=== PATIENT | female | born 1995 | race African-American/Black ===

== ENCOUNTER 2018-04-09 15:08 | Emergency (ER) | payer BC, MEDICAID ==
[~2018-04-09] VITALS: Ht 167.6 cm; Wt 110.2 kg
[~2018-04-09 15:08] MED LIST: FERR-43 PO; GLYB2.5T4 PO; PREN-88 PO
[2018-04-09 17:10] LABS: BASOPHILS % 0.6 % (0.0-2.0); EOSINOPHILS % 0.5 % (0.0-5.0); HEMATOCRIT. 32.2 % (36.0-48.0); HEMOGLOBIN. 10.1 g/dL (12.0-16.0); LYMPHOCYTES % 14.3 % (20.0-50.0); MEAN CORPUSCULAR HEMOGLOBIN 22.2 pg (28.0-32.0); MEAN CORPUSCULAR VOLUME 70.9 fL (81.0-99.0); MEAN PLATELET VOLUME 8.9 fl (7.4-10.4); MONOCYTES % 3.1 % (2.0-8.0); NEUTROPHILS % 81.5 % (40.0-76.0); PLATELET 238 x1000/uL (130-400); RED BLOOD CELL COUNT 4.54 mill/uL (4.2-5.4)
[2018-04-09 17:13] LABS: CHLORIDE 103 mEq/L (98-107)
[2018-04-09 17:14] LABS: PROTHROMBIN TIME 10.1 sec (9.1-11.1)
[2018-04-09 17:39] LABS: B-HCG QUANTITATIVE 111901 mIU/mL (<3)
[2018-04-09] MEDS ORDERED: ACETAMINOPHEN 325MG TABLET PO ONE (18:00)
[2018-04-09] MEDS ORDERED: ACETAMINOPHEN 325MG TABLET ONE (18:13)
[2018-04-09 19:41] LABS: CLARITY URINE CLOUDY (CLEAR); COLOR URINE YELLOW (YELLOW); KETONES URINE TRACE (NEGATIVE); LEUKOCYTE ESTERASE URINE 1+ (NEGATIVE); NITRITE URINE NEGATIVE (NEGATIVE); OCCULT BLOOD URINE NEGATIVE (NEGATIVE); PH URINE 5.5 (4.5-8.0); PROTEIN URINE NEGATIVE (NEGATIVE); SPECIFIC GRAVITY URINE 1.032 (1.005-1.030); UROBILINOGEN URINE 0.2 E.U./dL (0.2-1.0)
[2018-04-09 20:32] VITALS: BP 115/84
== END 2018-04-09 20:33 | disposition home or self-care (01) ==
LOC: ER 15:08
DX: O20.0 Threatened abortion (principal); O23.11 Infections of bladder in pregnancy, first trimester; O24.419 Gestational diabetes mellitus in pregnancy, unspecified control; O26.891 Other specified pregnancy related conditions, first trimester; D72.829 Elevated white blood cell count, unspecified; Z3A.13 13 weeks gestation of pregnancy; Z88.8 Allergy status to other drugs, medicaments and biological substances
CPT/HCPCS: 36415; 76801; 76802; 80053; 81003; 81025; 84702; 85025; 85610; 86850; 86900; 99285

== ENCOUNTER 2020-10-15 00:38 | Emergency (ER) | payer MEDICAID ==
[~2020-10-15] VITALS: Ht 170.2 cm; Wt 118.1 kg
[2020-10-15 01:44] LABS: CLARITY URINE CLEAR (CLEAR); COLOR URINE YELLOW (YELLOW); KETONES URINE NEGATIVE (NEGATIVE); LEUKOCYTE ESTERASE URINE NEGATIVE (NEGATIVE); NITRITE URINE NEGATIVE (NEGATIVE); OCCULT BLOOD URINE 3+ (NEGATIVE); PH URINE 6.5 (4.5-8.0); PROTEIN URINE NEGATIVE (NEGATIVE); SPECIFIC GRAVITY URINE 1.027 (1.005-1.030)
[2020-10-15] MEDS ORDERED: SODIUM CHLORIDE 0.9% 1,000 ML IV ONE (01:45)
[2020-10-15 02:15] LABS: BASOPHILS % 0.5 % (0.0-2.0); EOSINOPHILS % 1.3 % (0.0-5.0); HEMATOCRIT. 31.3 % (36.0-48.0); HEMOGLOBIN. 9.3 g/dL (12.0-16.0); LYMPHOCYTES % 14.2 % (20.0-50.0); MEAN CORPUSCULAR HEMOGLOBIN 19.4 pg (28.0-32.0); MEAN CORPUSCULAR VOLUME 65.2 fL (81.0-99.0); MEAN PLATELET VOLUME 9.1 fl (7.4-10.4); MONOCYTES % 5.1 % (2.0-8.0); NEUTROPHILS % 78.9 % (40.0-76.0); PLATELET 318 x1000/uL (130-400); RED CELL DISTRIBUTION WIDTH 19.5 % (11.6-14.6)
[2020-10-15 02:29] LABS: PLATELET ESTIMATE NORMAL
[2020-10-15 02:33] LABS: CHLORIDE 104 mEq/L (98-107)
[2020-10-15 02:45] LABS: B-HCG QUANTITATIVE < 1 mIU/mL (<3)
[2020-10-15] MEDS ORDERED: IBUP-2028 MT (03:32)
[2020-10-15 03:55] VITALS: BP 131/82
== END 2020-10-15 04:00 | disposition home or self-care (01) ==
LOC: ER 00:38
DX: O03.9 Complete or unspecified spontaneous abortion without complication (principal); D50.9 Iron deficiency anemia, unspecified; E11.9 Type 2 diabetes mellitus without complications
CPT/HCPCS: 36415; 76830; 76856; 80053; 81003; 81025; 84702; 85025; 86850; 86900; 86901; 96360; 96361; 99284; J7030; Z7610

== ENCOUNTER 2021-08-12 10:25 | Emergency (ER) | payer MEDICAID, OTHER ==
[~2021-08-12] VITALS: Ht 170.2 cm; Wt 109.0 kg
[~2021-08-12 10:25] MED LIST changes: +IBUP-2028 MT
[2021-08-12 10:30] VITALS: BP 170/80
[2021-08-12] MEDS ORDERED: ACETAMINOPHEN 325MG TABLET PO ONE (10:30)
== END 2021-08-12 12:15 | disposition home or self-care (01) ==
LOC: ER 10:25
DX: S93.492A Sprain of other ligament of left ankle, initial encounter (principal); M25.571 Pain in right ankle and joints of right foot; W01.0XXA Fall on same level from slipping, tripping and stumbling without subsequent striking against object, initial encounter; Y93.89 Activity, other specified; Y92.89 Other specified places as the place of occurrence of the external cause; Y99.8 Other external cause status; Z98.890 Other specified postprocedural states
CPT/HCPCS: 73610; 99283

== ENCOUNTER 2021-10-09 08:03 | Emergency (ER) | payer MEDICAID, OTHER ==
[~2021-10-09] VITALS: Ht 170.2 cm; Wt 126.0 kg
[2021-10-09] MEDS ORDERED: IBUPROFEN 600MG TABLET PO STA (10:18)
[2021-10-09 11:07] LABS: BASOPHILS % 0.4 % (0.0-2.0); EOSINOPHILS % 0.8 % (0.0-5.0); HEMATOCRIT. 33.5 % (36.0-48.0); HEMOGLOBIN. 10.3 g/dL (12.0-16.0); LYMPHOCYTES % 16.3 % (20.0-50.0); MEAN CORPUSCULAR VOLUME 65.2 fL (81.0-99.0); MEAN PLATELET VOLUME 9.4 fl (7.4-10.4); MONOCYTES % 3.1 % (2.0-8.0); NEUTROPHILS % 79.4 % (40.0-76.0); PLATELET 254 x1000/uL (130-400); RED BLOOD CELL COUNT 5.14 mill/uL (4.2-5.4); RED CELL DISTRIBUTION WIDTH 19.1 % (11.6-14.6)
[2021-10-09 11:19] LABS: CLARITY URINE CLEAR (CLEAR); COLOR URINE YELLOW (YELLOW); KETONES URINE NEGATIVE (NEGATIVE); LEUKOCYTE ESTERASE URINE NEGATIVE (NEGATIVE); NITRITE URINE NEGATIVE (NEGATIVE); OCCULT BLOOD URINE 3+ (NEGATIVE); PROTEIN URINE NEGATIVE (NEGATIVE); SPECIFIC GRAVITY URINE 1.042 (1.005-1.030); UROBILINOGEN URINE 0.2 E.U./dL (0.2-1.0)
[2021-10-09 11:21] LABS: CHLORIDE 101 mEq/L (98-107)
[2021-10-09 11:27] LABS: HCG SCREEN NEGATIVE
[2021-10-09 12:15] VITALS: BP 114/71
[2021-10-09 15:17] LABS: PLATELET ESTIMATE NORMAL
== END 2021-10-09 12:44 | disposition home or self-care (01) ==
LOC: ER 08:05
DX: N93.8 Other specified abnormal uterine and vaginal bleeding (principal); E11.65 Type 2 diabetes mellitus with hyperglycemia; Z88.8 Allergy status to other drugs, medicaments and biological substances; Z98.890 Other specified postprocedural states
CPT/HCPCS: 36415; 80053; 81003; 84703; 85025; 99283

== ENCOUNTER 2021-10-09 21:37 | Emergency (ER) | payer MEDICAID, OTHER ==
[~2021-10-09] VITALS: Ht 170.2 cm; Wt 122.0 kg
[2021-10-09 22:33] LABS: BASOPHILS % 0.9 % (0.0-2.0); EOSINOPHILS % 1.3 % (0.0-5.0); HEMATOCRIT. 33.4 % (36.0-48.0); HEMOGLOBIN. 10.1 g/dL (12.0-16.0); LYMPHOCYTES % 20.2 % (20.0-50.0); MEAN CORPUSCULAR HEMOGLOBIN 19.6 pg (28.0-32.0); MEAN CORPUSCULAR VOLUME 64.8 fL (81.0-99.0); MEAN PLATELET VOLUME 9.1 fl (7.4-10.4); MONOCYTES % 4.6 % (2.0-8.0); PLATELET 263 x1000/uL (130-400); RED BLOOD CELL COUNT 5.15 mill/uL (4.2-5.4); RED CELL DISTRIBUTION WIDTH 18.7 % (11.6-14.6)
[2021-10-09 22:40] LABS: CHLORIDE 102 mEq/L (98-107)
[2021-10-09 22:51] LABS: B-HCG QUANTITATIVE < 1 mIU/mL (<3)
[2021-10-10] MEDS ORDERED: IBUPROFEN 600MG TABLET PO ONE (00:30)
[2021-10-10 00:39] LABS: CLARITY URINE CLOUDY (CLEAR); COLOR URINE RED (YELLOW); KETONES URINE TRACE (NEGATIVE); LEUKOCYTE ESTERASE URINE 1+ (NEGATIVE); NITRITE URINE NEGATIVE (NEGATIVE); OCCULT BLOOD URINE 3+ (NEGATIVE); PH URINE 5.5 (4.5-8.0); PROTEIN URINE 1+ (NEGATIVE); SPECIFIC GRAVITY URINE 1.049 (1.005-1.030); UROBILINOGEN URINE 0.2 E.U./dL (0.2-1.0)
[2021-10-10 02:10] VITALS: BP 128/78
== END 2021-10-10 02:11 | disposition home or self-care (01) ==
LOC: ER 21:37
DX: N93.8 Other specified abnormal uterine and vaginal bleeding (principal); D25.9 Leiomyoma of uterus, unspecified; Z88.8 Allergy status to other drugs, medicaments and biological substances; Z98.890 Other specified postprocedural states
CPT/HCPCS: 36415; 76830; 76856; 80053; 81003; 81025; 84702; 85025; 86850; 86900; 93005; 99285

== ENCOUNTER 2021-10-22 06:54 | Emergency (ER) | payer MEDICAID ==
[~2021-10-22] VITALS: Ht 170.2 cm; Wt 122.0 kg
[2021-10-22] MEDS ORDERED: IBUPROFEN 600MG TABLET PO STA (07:39)
[2021-10-22 08:02] LABS: CLARITY URINE CLEAR (CLEAR); COLOR URINE YELLOW (YELLOW); KETONES URINE 1+ (NEGATIVE); LEUKOCYTE ESTERASE URINE NEGATIVE (NEGATIVE); NITRITE URINE NEGATIVE (NEGATIVE); OCCULT BLOOD URINE NEGATIVE (NEGATIVE); PH URINE 5.5 (4.5-8.0); PROTEIN URINE NEGATIVE (NEGATIVE); SPECIFIC GRAVITY URINE 1.043 (1.005-1.030); UROBILINOGEN URINE 0.2 E.U./dL (0.2-1.0)
[2021-10-22] MEDS ORDERED: SODIUM CHLORIDE 0.9% IV ONE (08:30)
[2021-10-22] MEDS ORDERED: SODIUM CHLORIDE 0.9% 1,000 ML IV ONE (08:30)
[2021-10-22] MEDS ORDERED: ONDANSETRON HCL 4MG/2ML INJ IV ONE (08:45)
[2021-10-22 08:56] LABS: BASOPHILS % 0.3 % (0.0-2.0); EOSINOPHILS % 0.6 % (0.0-5.0); HEMATOCRIT. 35.6 % (36.0-48.0); HEMOGLOBIN. 10.8 g/dL (12.0-16.0); LYMPHOCYTES % 11.8 % (20.0-50.0); MEAN CORPUSCULAR HEMOGLOBIN 20.1 pg (28.0-32.0); MEAN CORPUSCULAR VOLUME 66.3 fL (81.0-99.0); MEAN PLATELET VOLUME 10.8 fl (7.4-10.4); MONOCYTES % 4.4 % (2.0-8.0); NEUTROPHILS % 82.9 % (40.0-76.0); PLATELET 246 x1000/uL (130-400); RED BLOOD CELL COUNT 5.37 mill/uL (4.2-5.4); RED CELL DISTRIBUTION WIDTH 20.2 % (11.6-14.6)
[2021-10-22 08:58] LABS: CHLORIDE 101 mEq/L (98-107)
[2021-10-22 09:03] VITALS: BP 116/73
[2021-10-22 09:37] LABS: PLATELET ESTIMATE NORMAL
[2021-10-22] MEDS ORDERED: INSULIN REGULAR (HUMULIN R) 300UNITS/3ML VIAL SUBCUT ONE (10:30)
[2021-10-22] MEDS ORDERED: GLYB2.5T4 MT (10:33)
[2021-10-22] MEDS ORDERED: KETO15CR2 TP (10:33)
== END 2021-10-22 11:10 | disposition home or self-care (01) ==
LOC: ER 06:54
DX: E11.65 Type 2 diabetes mellitus with hyperglycemia (principal); B35.6 Tinea cruris; F12.10 Cannabis abuse, uncomplicated; Z88.8 Allergy status to other drugs, medicaments and biological substances; Z98.890 Other specified postprocedural states
CPT/HCPCS: 36415; 80053; 81003; 81025; 82962; 85025; 96361; 96372; 96374; 99283; J1815; J2405; J7030; Z7610

== ENCOUNTER 2023-10-06 10:33 | Emergency (ER) | payer MEDICAID, OTHER ==
[~2023-10-06] VITALS: Ht 172.7 cm; Wt 105.0 kg
[~2023-10-06 10:33] MED LIST changes: +GLYB2.5T4 MT; +KETO15CR2 TP
[2023-10-06 10:44] VITALS: BP 134/83; PULSE 117; RESP 16; TEMP 98.1; O2SAT 98
[2023-10-06 11:15] LABS: BASOPHILS % 0.7 % (0.0-2.0); EOSINOPHILS % 0.2 % (0.0-5.0); HEMATOCRIT. 33.3 % (36.0-48.0); LYMPHOCYTES % 13.7 % (20.0-50.0); MEAN CORPUSCULAR HEMOGLOBIN 20.4 pg (28.0-32.0); MEAN PLATELET VOLUME 8.6 fl (7.4-10.4); MONOCYTES % 4.6 % (2.0-8.0); NEUTROPHILS % 80.8 % (40.0-76.0); PLATELET 335 x1000/uL (130-400); RED BLOOD CELL COUNT 4.89 mill/uL (4.2-5.4); RED CELL DISTRIBUTION WIDTH 18.1 % (11.6-14.6); WHITE BLOOD COUNT 19.7 x1000/uL (4.5-11.0)
[2023-10-06 11:18] LABS: ADD RBC MORPHOLOGY YES; DIFFERENTIAL COMMENT 1
[2023-10-06 11:30] LABS: ALANINE AMINOTRANSFERASE 10 IU/L (10-49); ALBUMIN 4.6 g/dL (3.2-4.8); ASPARTATE AMINOTRANSFERASE 11 IU/L (<34); BILIRUBIN TOTAL 0.6 mg/dL (0.1-1.0); CALCIUM 9.3 mg/dL (8.7-10.4); CARBON DIOXIDE 26 mEq/L (21-32); CHLORIDE 102 mEq/L (98-107); CREATININE 0.7 mg/dL (0.6-1.0); GLUCOSE 130 mg/dL (70-105); POTASSIUM 3.4 mEq/L (3.5-5.1); PROTEIN TOTAL 8.7 g/dL (6.0-8.3); SODIUM 136 mEq/L (136-145); UREA NITROGEN BLOOD 11 mg/dL (9-23)
[2023-10-06 12:04] LABS: ANISOCYTOSIS 1+; MICROCYTOSIS 3+; PLATELET ESTIMATE NORMAL
[2023-10-06] MEDS ORDERED: CLOT10TR2 MT (13:08)
[2023-10-06] MEDS: CLOTRIMAZOLE 10MG TROCHE MM SCH (13:15)
== END 2023-10-06 14:30 | disposition home or self-care (01) ==
LOC: ER 10:33
DX: B37.0 Candidal stomatitis (principal); D72.829 Elevated white blood cell count, unspecified; F12.10 Cannabis abuse, uncomplicated; J45.909 Unspecified asthma, uncomplicated; E11.9 Type 2 diabetes mellitus without complications; Z88.8 Allergy status to other drugs, medicaments and biological substances
CPT/HCPCS: 36415; 71045; 80053; 81025; 85025; 87070; 87430; 99284

== ENCOUNTER 2024-10-29 22:43 | Emergency (ER) | payer OTHER ==
[~2024-10-29] VITALS: Ht 170.2 cm; Wt 104.0 kg
[~2024-10-29 22:43] MED LIST changes: +CLOT10TR2 MT
[2024-10-29 22:56] VITALS: O2SAT 99
[2024-10-29 23:36] LABS: BASOPHILS % 0.9 % (0.0-2.0); EOSINOPHILS % 0.2 % (0.0-5.0); HEMATOCRIT. 35.4 % (36.0-48.0); HEMOGLOBIN. 10.6 g/dL (12.0-16.0); LYMPHOCYTES % 9.7 % (20.0-50.0); MEAN CORPUSCULAR HEMOGLOBIN 20.3 pg (28.0-32.0); MEAN CORPUSCULAR HGB CONC 29.9 g/dL (31.0-37.0); MEAN CORPUSCULAR VOLUME 67.7 fL (81.0-99.0); MEAN PLATELET VOLUME 9.1 fl (7.4-10.4); MONOCYTES % 4.3 % (2.0-8.0); NEUTROPHILS % 84.9 % (40.0-76.0); PLATELET 264 x1000/uL (130-400); RED BLOOD CELL COUNT 5.23 mill/uL (4.2-5.4); WHITE BLOOD COUNT 12.4 x1000/uL (4.5-11.0)
[2024-10-29 23:43] LABS: ADD RBC MORPHOLOGY YES; DIFFERENTIAL COMMENT 1
[2024-10-29 23:48] LABS: CHLORIDE 103 mEq/L (98-107); POTASSIUM 3.7 mEq/L (3.5-5.1); SODIUM 137 mEq/L (136-145)
[2024-10-29 23:49] LABS: CARBON DIOXIDE 26 mEq/L (21-32)
[2024-10-29 23:50] LABS: CALCIUM 8.8 mg/dL (8.7-10.4)
[2024-10-29 23:54] LABS: CREATININE 0.7 mg/dL (0.6-1.0); GLUCOSE 170 mg/dL (70-105); UREA NITROGEN BLOOD 14 mg/dL (9-23)
[2024-10-30] MEDS: KETOROLAC 30MG/ML VIAL IV STA (00:27)
[2024-10-30] MEDS: SODIUM CHLORIDE 0.9% 1,000 ML IV ONE (00:30)
[2024-10-30 01:46] LABS: PHOSPHORUS 2.9 mg/dL (2.5-4.9)
[2024-10-30 01:47] LABS: TROPONIN I HIGH SENSITIVITY < 4 ng/L (3.0-34)
[2024-10-30 01:57] LABS: CLARITY URINE CLEAR (CLEAR); COLOR URINE YELLOW (YELLOW); PH URINE 5.5 (4.5-8.0); PROTEIN URINE 1+ (NEGATIVE); SPECIFIC GRAVITY URINE 1.049 (1.005-1.030)
[2024-10-30 01:58] LABS: GLUCOSE URINE 3+ (NEGATIVE); KETONES URINE 1+ (NEGATIVE); NITRITE URINE NEGATIVE (NEGATIVE); OCCULT BLOOD URINE NEGATIVE (NEGATIVE)
[2024-10-30 01:59] LABS: LEUKOCYTE ESTERASE URINE NEGATIVE (NEGATIVE)
[2024-10-30 02:06] LABS: ALANINE AMINOTRANSFERASE 14 IU/L (10-49); ALBUMIN 4.5 g/dL (3.2-4.8); ASPARTATE AMINOTRANSFERASE 13 IU/L (<34); BILIRUBIN DIRECT 0.2 mg/dL (<=3.0); BILIRUBIN TOTAL 0.8 mg/dL (0.1-1.0); PROTEIN TOTAL 8.3 g/dL (6.0-8.3)
[2024-10-30 02:06] LABS: SQUAMOUS EPITHELIAL CELL URINE 2+ /lpf (RARE/1+)
[2024-10-30 02:07] LABS: BACTERIA URINE TRACE; RBC URINE 0-2 /hpf (0-2)
[2024-10-30 02:45] LABS: HCG SCREEN NEGATIVE
[2024-10-30 03:10] LABS: TROPONIN I HIGH SENSITIVITY < 4 ng/L (3.0-34)
[2024-10-30] MEDS: IOHEXOL-300 100 ML BOTTLE ONE (04:20)
[2024-10-30] MEDS: ONDANSETRON HCL 4MG/2ML INJ IV STA (04:53)
[2024-10-30 05:01] LABS: ANISOCYTOSIS 2+
[2024-10-30 05:02] LABS: HYPOCHROMASIA 2+; MICROCYTOSIS 3+
[2024-10-30 05:04] LABS: PLATELET ESTIMATE NORMAL
[2024-10-30] MEDS ORDERED: FAMO-135 MT (05:10)
[2024-10-30] MEDS ORDERED: IBUP-2029 MT (05:11)
[2024-10-30] MEDS ORDERED: NITR-87 MT (05:11)
[2024-10-30 05:16] VITALS: TEMP 36.1; O2SAT 100
[2024-10-30 06:06] VITALS: BP 120/67; PULSE 84; RESP 18
[2024-10-30] MEDS: KETOROLAC 30MG/ML VIAL IV NR (06:06)
[2024-10-30] MEDS: ONDANSETRON HCL 4MG/2ML INJ IV NR (06:06)
== END 2024-10-30 06:54 | disposition home or self-care (01) ==
LOC: ER 22:48
DX: R10.2 Pelvic and perineal pain (principal); D25.9 Leiomyoma of uterus, unspecified; K80.20 Calculus of gallbladder without cholecystitis without obstruction; R07.89 Other chest pain; K76.0 Fatty (change of) liver, not elsewhere classified; D73.89 Other diseases of spleen; E11.65 Type 2 diabetes mellitus with hyperglycemia; Z79.84 Long term (current) use of oral hypoglycemic drugs
CPT/HCPCS: 80048; 85025; 36415 ×2; 99285; 80076; 81003; 84703; 83690; 83735; 84100; 84484; 71045; 74177; 76705; 76830; 76856; 93005; 96361; 96374; 96375; Q9967; J1885; J2405; J7030; Z7610